=== PATIENT | female | born 1970 | race Hispanic/Latino ===

== ENCOUNTER → 2024-10-09 09:41 | Outpatient (REF) | payer OTHER, SELFPAY | LOC: RAD 09:41 | PROVIDERS: ATTENDING PHYSICIAN Family Medicine | DX: R10.84 Generalized abdominal pain (principal) | CPT/HCPCS: 76700 ==

== ENCOUNTER → 2024-11-20 15:07 | Outpatient (REF) | payer OTHER, SELFPAY | LOC: WDC 15:07 | PROVIDERS: ATTENDING PHYSICIAN Family Medicine | DX: Z12.31 Encounter for screening mammogram for malignant neoplasm of breast (principal) | CPT/HCPCS: 77063; 77067 ==

== ENCOUNTER 2024-12-16 19:24 | Emergency (ER) | payer OTHER, SELFPAY ==
[2024-12-16 19:26] VITALS: BP 139/74
--- NOTE | 2024-12-16 21:58 | ED.GENMED ---
History of Present Illness
General
Chief Complaint: Musculo-Skeletal Complaint
Source: patient and family
Exam Limitations: none
Time Seen by Provider: 12/16/24 21:08
History of Present Illness
History of Present Illness:
Note:
CHIEF COMPLAINT(S)
Inability to bear weight on the left knee with pain and swelling.
HISTORY OF PRESENT ILLNESS
The patient is a 53-year-old female with no prior significant injury history, who presented with left knee pain and swelling following two falls. The first fall occurred on Wednesday while at home in the kitchen when she slipped on a towel. A
subsequent fall happened yesterday, also in the kitchen. Since these falls, she has been unable to put any pressure on her left knee due to severe pain and swelling. She experiences throbbing pain when attempting to walk or put weight on it,
rendering her mostly reliant on her right leg and requiring a wheelchair for transport. Sitting down exacerbates her pain, with noticeable associated swelling due to fluid accumulation in the joint. Examination revealed a small nondisplaced fracture
of the femur extending into the knee joint, which is causing the effusion.
SOCIAL DETERMINANTS AFFECTING HEALTH
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 The patients current condition raises concerns about her ability to work, as she may be out of commission for an extended
period which adds financial stress and instability due to the nature of their joint employment.
PHYSICAL EXAM
General: Alert, in moderate distress due to knee pain.
Musculoskeletal: Significant left knee effusion with tenderness noted along the proximal portion of the knee. Normal distal pulses, with feet warm and well-perfused. No lower extremity edema observed.
PLAN
- Application of a knee immobilizer and use of crutches to maintain non-weight bearing status on the left leg.
- Pain management with ibuprofen (administered around the clock) and consideration of a narcotic for breakthrough pain if necessary, with cautious use due to potential side effects.
- Recommendation for cryotherapy (ice application) as needed for pain and swelling.
- Referral for follow-up with an it operations specialist to evaluate for further treatment and possible joint fluid aspiration if needed.
- Advise minimization of weight-bearing activities, especially at work, to allow for appropriate healing.
- Discussion with the patient about the importance of prioritizing recovery over immediate return to work.
DIFFERENTIAL DIAGNOSIS
The Differential Diagnosis includes, in no particular order and is not limited to:
1. Femur fracture
2. Knee joint effusion
3. Meniscal tear
4. Ligamentous injury (ACL, PCL)
5. Patellar subluxation or dislocation
6. Osteoarthritis exacerbation
7. Bursitis
8. Soft tissue contusion
9. Septic arthritis
10. Rheumatologic condition presenting with acute joint effusion.
Disposition:
SUMMARY OF ENCOUNTER
The patient, a 53-year-old female, presented to the emergency department with inability to bear weight on the left knee, accompanied by pain and swelling following two falls in the kitchen. Examination and X-ray revealed a non-displaced fracture of
the lateral femoral condyle with associated effusion. A knee immobilizer was applied to ensure hqa-[id number]-[id number] status. The patient was advised on rest, ice, elevation, and pain management.
PLAN
- Continue using the knee immobilizer to maintain [id number] status on the left leg.
- Administer pain management with ibuprofen and provide hydrocodone for breakthrough pain as necessary.
- Follow-up with an it operations specialist for further assessment and consideration of joint fluid aspiration if indicated.
- Implement cryotherapy (ice application) to reduce pain and swelling.
INDEPENDENT REVIEW OF LABS AND INTERPRETATION OF TESTS
- My independent interpretation of the X-ray shows a non-displaced fracture of the lateral femoral condyle with noted effusion.
PATIENT EDUCATION AND COUNSELING
The patient was counseled on the importance of rest, ice application, and elevation to promote healing. Pain management strategies were discussed, highlighting the cautious use of narcotics for breakthrough pain.
MEDICATION RECONCILIATION
- Hydrocodone prescribed for pain control as needed.
MEDICAL DECISION MAKING
- Number and Complexity of Problems Addressed: The differential diagnosis includes femur fracture, knee joint effusion, meniscal tear, ligamentous injury, patellar subluxation or dislocation, osteoarthritis exacerbation, bursitis, soft tissue
contusion, septic arthritis, and rheumatologic condition presenting with acute joint effusion.
- Data:
- Category 2: My independent interpretation of the X-ray revealed a non-displaced fracture of the lateral femoral condyle.
- Risk: Prescription medication was prescribed for pain management. Consideration of admission or observation was not deemed necessary, as outpatient management with close follow-up was considered sufficient given the patients stability and
agreement with the plan.
Care significantly affected by Social Determinants of Health: The patients capacity to work is compromised due to the knee injury, impacting her and her spouse�s financial stability.
DIAGNOSIS
- Non-displaced fracture of the lateral femoral condyle, left knee [ICD-10 code: S82.06XA]
Past History
Past History
ED Past Medical History: HTN and Hypercholesterolemia
ED Past Surgical History: Cholecystectomy and
Social History
Tobacco: Non-smoker
Alcohol: None
Drug: None
Personal:
Living: with family
Employment: Employed
Phy Exam
Physical Exam
Physical Exam:
.
Course
Orders/Labs/Results
Orders:
Orders
12/16/24 19:26
Knee, Left 4 or More Views [CR Knee - Left 4 Or More View*] Urgent
Comment:
Reason For Exam: pain
12/16/24 21:29
Crutches-Treatment ONCE
Knee Immobilizer Left-Treatmen ONCE
Vital Signs
Initial and Last Documented VS:
Initial Vital Signs
Temp Pulse Resp BP Pulse Ox
98.2 F 82 16 139/74 98
12/16/24 19:26 12/16/24 19:26 12/16/24 19:26 12/16/24 19:26 12/16/24 19:26
Last Documented Vital Signs
Temp Pulse Resp BP Pulse Ox
98.2 F 82 16 139/74 98
12/16/24 19:26 12/16/24 19:26 12/16/24 19:26 12/16/24 19:26 12/16/24 19:26
*Pulse Oximetry
SaO2: 98
Oxygen Mode of Delivery: Room air
Patient hypoxic: no
*Critical Care Note
Total Time (30-74mins, 75-104mins- exclusive of procedures): Not Applicable
ED Attending Note
-
Portions of this chart may have been created with voice recognition software.� Occasional wrong word or��sound alike� substitutions may have occurred due to the inherent limitations of voice recognition software.
Discharge Plan
Departure
Patient Disposition: Home (Routine Discharge)
Date of Disposition: 12/16/24
Time of Disposition: 22:00
Patient with high blood pressure during this ER visit?: No
Discharge Problem:
Femur fracture
Instructions: How to Use Crutches, Knee Immobilizer (DC), Femur Fracture ED
Prescriptions:
New
hydrocodone-acetaminophen 5-325 mg tablet
2 tab PO Q6H PRN (Reason: Pain) Qty: 14 0RF
No Action
atenolol 50 MG tablet
50 mg PO DAILY
oxycodone-acetaminophen 5 MG/325 MG tablet
1 tab PO Q4HPRN PRN (Reason: moderate pain when sarthak PO's) Qty: 15 0RF
Referrals:
Jay Leiva MD [Active, Orthopedics]
Activity Restrictions/Additional Instructions:
Please rest, ice and elevate your injured knee. Please be sure to see orthopedics in the next 3 to 5 days for follow-up and reevaluation. Return immediately for worsening pain, fevers or any other concerns. Please do not bear weight on your left
lower extremity at any time until cleared by orthopedics
Interventions
Interventions:
*Risk Screen - Suicide Last Done: 12/16/24 19:26
*General Assessment Last Done: 12/16/24 19:26
*Neglect/Abuse Screening Last Done: 12/16/24 19:26
*ED- Fall Risk Assessment Last Done: 12/16/24 19:26
*ED COVID-19 Vaccine History Last Done: 12/16/24 19:26
Discharge Date and Time
Print Language: NICARAGU[place]
[2024-12-16 22:25] VITALS: BP 133/66
== END 2024-12-16 22:42 | disposition home or self-care (01) ==
LOC: EMR 19:24
PROVIDERS: EMERGENCY PHYSICIAN Emergency Medicine; FAMILY PHYSICIAN Family Medicine
DX: S72.92XA Unspecified fracture of left femur, initial encounter for closed fracture (principal); M25.462 Effusion, left knee; W18.39XA Other fall on same level, initial encounter; Y92.000 Kitchen of unspecified non-institutional (private) residence as the place of occurrence of the external cause; I10 Essential (primary) hypertension; E78.00 Pure hypercholesterolemia, unspecified; Z90.49 Acquired absence of other specified parts of digestive tract
CPT/HCPCS: 99283; 29505; 73564

== ENCOUNTER → 2025-01-03 14:28 | Outpatient (REF) | payer OTHER, SELFPAY | LOC: RAD 14:28 | PROVIDERS: ATTENDING PHYSICIAN Family Medicine | DX: R06.09 Other forms of dyspnea (principal) | CPT/HCPCS: 71046 ==